=== PATIENT | female | born 1985 | race Caucasian/White ===

== ENCOUNTER 2016-10-01 23:59 | Emergency (ER) | payer MEDICARE, OTHER ==
[2016-10-01 22:18] LABS: URINE SOURCE CLEAN CATCH
[2016-10-01 22:36] LABS: CULTURE INDICATED? YES; URINE APPEARANCE TURBID; URINE BACTERIA AUWI 4+ (NEGATIVE); URINE BILIRUBIN NEG (NEG); URINE BLOOD 3+ (NEG); URINE COLOR YELLOW; URINE GLUCOSE NEG (NEG); URINE KETONE NEG (NEG); URINE LEUKOCYTE ESTERASE 3+ (NEG); URINE NITRATE POS (NEG); URINE PH 8.5 (5-8); URINE PROTEIN 3+ (NEG); URINE SPECIFIC GRAVITY 1.023 (1.003-1.035); URINE SQUAMOUS EPITHELIAL CELL OCC /[HPF]; UWBCS1 AUWI INNUM (0-5)
[~2016-10-01 23:59] MED LIST: FLAGYL PO; FLINTSTONES T100 MCG PO; LORTAB 7.5-5001 TAB PO; NO MEDICATIONS; PROZAC PO
[2016-10-04 07:22] LABS: CHLAMYDIA TRACH Not Detected (Not Detected); N GONOR Not Detected (Not Detected)
== END 2016-10-02 00:24 | disposition home or self-care (01) ==
LOC: CFTX 23:59
PROVIDERS: Emergency Medicine; Physician Assistant
DX: N30.00 Acute cystitis without hematuria (principal); F17.210 Nicotine dependence, cigarettes, uncomplicated; Z88.5 Allergy status to narcotic agent
CPT/HCPCS: 81003; 84703; 87086; 87088; 87186; 87491; 87591; 87808; 87905; 99283